=== PATIENT | female | born 2000 | race Two or more races ===

== ENCOUNTER 2018-07-06 14:19 | Inpatient (IN) | payer MEDICAID ==
[2018-07-06 15:15] LABS: ADD MAN DIFF? NO
[2018-07-06 15:19] LABS: WHITE BLOOD COUNT 7.4 10^3/ul (4.8-10.8)
[2018-07-06 15:19] LABS: BASOPHILS % 0.1 % (0.0-2.0); EOSINOPHILS # 0.1 10^3/ul (0.0-0.5); EOSINOPHILS % 0.8 % (0.0-7.0); HEMATOCRIT 34.2 % (37.0-47.0); HEMOGLOBIN 11.8 g/dl (12.0-16.0); LYMPHOCYTES % 26.9 % (18.0-55.0); MEAN CORPUSCULAR HEMOGLOBIN 31.1 pg (29.0-33.0); MEAN CORPUSCULAR HGB CONC 34.5 g/dl (32.0-37.0); MEAN PLATELET VOLUME 12.3 fl (7.4-10.4); MONOCYTE # 0.6 10^3/ul (0.3-0.9); MONOCYTES % 7.7 % (0.0-13.0); NEUTROPHIL # 4.8 10^3/ul (1.6-7.5); PLATELET COUNT 128 10^3/UL (140-415); RED CELL DISTRIBUTION WIDTH 12.5 % (11.5-14.5)
[2018-07-06 15:30] LABS: ADD UMIC NO; UR ASCORBIC ACID NEGATIVE (NEGATIVE); UR BILIRUBIN (Dip) NEGATIVE (NEGATIVE); UR BLOOD (Dip) NEGATIVE (NEGATIVE); UR CLARITY CLEAR (CLEAR); UR COLOR YELLOW (YELLOW); UR GLUCOSE (Dip) NEGATIVE (NEGATIVE); UR KETONES (Dip) NEGATIVE (NEGATIVE); UR LEUKOCYTE ESTERASE (Dip) NEGATIVE Leu/ul (NEGATIVE); UR NITRITE (Dip) NEGATIVE (NEGATIVE); UR SPECIFIC GRAVITY (Dip) 1.015 (1.003-1.030); UR TOTAL PROTEIN (Dip) NEGATIVE (NEGATIVE); UR UROBILINOGEN (Dip) NEGATIVE (NEGATIVE)
[2018-07-06 15:40] LABS: ALANINE AMINOTRANSFERASE 33 IU/L (13-69); ALKALINE PHOSPHATASE 163 IU/L (42-121); ANION GAP 11 (8-16); ASPARTATE AMINO TRANSFERASE 29 IU/L (15-46); BILIRUBIN,INDIRECT 0.2 mg/dl (0-1.1); BILIRUBIN,TOTAL 0.2 mg/dl (0.2-1.3); BLOOD UREA NITROGEN 12 mg/dl (7-20); CALCIUM 9.2 mg/dl (8.4-10.2); CARBON DIOXIDE 22 mmol/L (21-31); CHLORIDE 107 mmol/L (97-110); CREATININE 0.57 mg/dl (0.44-1.00); GLUCOSE 121 mg/dl (70-220); POTASSIUM 3.9 mmol/L (3.5-5.1); SODIUM 136 mmol/L (135-144); URIC ACID 4.8 mg/dl (3.1-7.9)
[2018-07-06 15:41] LABS: ALBUMIN 2.8 g/dl (3.3-4.9); ALBUMIN/GLOBULIN RATIO 0.87; INR 0.88; PARTIAL THROMBOPLASTIN TIME 27.9 Sec (23.0-35.0); PT RATIO 0.9
[2018-07-06] MEDS: BETAMET NA PHOS/AC(6 MG/ML) 5ML INJ IM (16:52)
[2018-07-06] MEDS: MAGNESIUM SULFATE 4 GM/100 ML 100 ML IV (16:56)
[2018-07-06] MEDS: MAGNESIUM SULFATE 20 GM/500 ML 500 ML IV (17:24)
[2018-07-06] MEDS: LACTATED RINGER'S 1,000 ML IV (18:25)
[2018-07-06 19:13] LABS: HEPATITIS B SURFACE ANTIGEN NEGATIVE (NEGATIVE)
[2018-07-06 20:01] LABS: HIV 1&2 ANTIBODY NEGATIVE (NEGATIVE)
[2018-07-06] MEDS: ACETAMINOPHEN 325 MG TAB PO (20:30)
[2018-07-07 01:03] LABS: MAGNESIUM 5.2 mg/dl (1.7-2.5)
[2018-07-07] MEDS: LACTATED RINGER'S 1,000 ML IV ×3 (01:47→19:00)
[2018-07-07] MEDS: MAGNESIUM SULFATE 20 GM/500 ML 500 ML IV ×3 (03:25→23:56)
[2018-07-07 07:34] LABS: MAGNESIUM 5.9 mg/dl (1.7-2.5)
[2018-07-07] MEDS: ACETAMINOPHEN 325 MG TAB PO (12:02)
[2018-07-07 12:53] LABS: MAGNESIUM 6.4 mg/dl (1.7-2.5)
[2018-07-07] MEDS: BETAMET NA PHOS/AC(6 MG/ML) 5ML INJ IM (15:41)
[2018-07-07 16:23] LABS: RAPID PLASMA REAGIN NONREACTIVE (NR)
[2018-07-07 17:09] LABS: COLLECTION PERIOD 24 hrs
[2018-07-07 19:33] LABS: COLLECTION PERIOD 24 hrs; CREATININE CLEARANCE 143.3 mls/min (84.0-162.0); CREATININE,URINE RANDOM 29.05 mg/dl (20-320); SCRET 0.57 mg/dl (0.44-1.00); VOLUME 4050 ml/24hrs
[2018-07-07 19:34] LABS: VOLUME 4050 mls
[2018-07-07 20:16] LABS: MAGNESIUM 6.4 mg/dl (1.7-2.5)
[2018-07-08 01:51] LABS: MAGNESIUM 6.3 mg/dl (1.7-2.5)
[2018-07-08] MEDS: LACTATED RINGER'S 1,000 ML IV ×2 (02:24→15:45)
[2018-07-08 08:55] LABS: MAGNESIUM 6.2 mg/dl (1.7-2.5)
[2018-07-08] MEDS: MAGNESIUM SULFATE 20 GM/500 ML 500 ML IV (09:56)
[2018-07-08 12:56] LABS: RUBELLA ANTIBODY - IGG 6.74 index
[2018-07-08 19:03] LABS: MAGNESIUM 5.7 mg/dl (1.7-2.5)
[2018-07-09] MEDS: LACTATED RINGER'S 1,000 ML IV ×2 (05:06→18:26)
[2018-07-09 10:02] LABS: RUBELLA ANTIBODY - IGM <20.00 AU/mL
[2018-07-09 14:17] LABS: ADD MAN DIFF? NO
[2018-07-09 14:18] LABS: BASOPHILS % 0.1 % (0.0-2.0); EOSINOPHILS # 0.1 10^3/ul (0.0-0.5); EOSINOPHILS % 0.7 % (0.0-7.0); HEMATOCRIT 33.7 % (37.0-47.0); HEMOGLOBIN 11.1 g/dl (12.0-16.0); LYMPHOCYTES # 1.9 10^3/ul (0.8-2.9); LYMPHOCYTES % 22.5 % (18.0-55.0); MEAN CORPUSCULAR HEMOGLOBIN 30.7 pg (29.0-33.0); MEAN CORPUSCULAR HGB CONC 32.9 g/dl (32.0-37.0); MEAN CORPUSCULAR VOLUME 93.1 fl (72.0-104.0); MEAN PLATELET VOLUME 12.1 fl (7.4-10.4); NEUTROPHIL # 5.3 10^3/ul (1.6-7.5); NEUTROPHILS % 63.4 % (30.0-74.0); NUCLEATED RED BLOOD CELLS% 0.2 /100WBC (0.0-0.0); PLATELET COUNT 136 10^3/UL (140-415); RED BLOOD COUNT 3.62 10^6/ul (4.20-5.40); RED CELL DISTRIBUTION WIDTH 12.8 % (11.5-14.5)
[2018-07-09 14:18] LABS: WHITE BLOOD COUNT 8.3 10^3/ul (4.8-10.8)
[2018-07-09 14:39] LABS: INR 0.82; PARTIAL THROMBOPLASTIN TIME 25.4 Sec (23.0-35.0); PROTIME 11.3 Sec (11.9-14.9); PT RATIO 0.9
[2018-07-09 14:41] LABS: ALANINE AMINOTRANSFERASE 41 IU/L (13-69); ALBUMIN 2.7 g/dl (3.3-4.9); ALBUMIN/GLOBULIN RATIO 0.87; ALKALINE PHOSPHATASE 158 IU/L (42-121); ANION GAP 5 (5-13); ASPARTATE AMINO TRANSFERASE 40 IU/L (15-46); BILIRUBIN,INDIRECT 0.2 mg/dl (0-1.1); BILIRUBIN,TOTAL 0.2 mg/dl (0.2-1.3); BLOOD UREA NITROGEN 11 mg/dl (7-20); CALCIUM 8.5 mg/dl (8.4-10.2); CARBON DIOXIDE 25 mmol/L (21-31); CHLORIDE 107 mmol/L (97-110); CREATININE 0.67 mg/dl (0.44-1.00); GLUCOSE 98 mg/dl (70-220); POTASSIUM 4.2 mmol/L (3.5-5.1); SODIUM 137 mmol/L (135-144); TOTAL PROTEIN 5.8 g/dl (6.1-8.1); URIC ACID 5.1 mg/dl (3.1-7.9)
[2018-07-09 15:13] LABS: ADD UMIC NO; UR ASCORBIC ACID 20 mg/dL (NEGATIVE); UR BACTERIA FEW /HPF (NONE SEEN); UR BILIRUBIN (Dip) NEGATIVE (NEGATIVE); UR BLOOD (Dip) NEGATIVE (NEGATIVE); UR CLARITY SLIGHTLY CLOUDY (CLEAR); UR COLOR YELLOW (YELLOW); UR GLUCOSE (Dip) NEGATIVE (NEGATIVE); UR KETONES (Dip) NEGATIVE (NEGATIVE); UR LEUKOCYTE ESTERASE (Dip) NEGATIVE Leu/ul (NEGATIVE); UR NITRITE (Dip) NEGATIVE (NEGATIVE); UR RBC 1 /HPF (0-5); UR SPECIFIC GRAVITY (Dip) 1.018 (1.003-1.030); UR TOTAL PROTEIN (Dip) NEGATIVE (NEGATIVE); UR UROBILINOGEN (Dip) NEGATIVE (NEGATIVE); UR WBC 0 /HPF (0-5)
[2018-07-09] MEDS ORDERED: MISOPROSTOL 200 MCG TAB PR (18:00)
[2018-07-09] MEDS ORDERED: CARBOPROST 250 MCG INJ IM (18:00)
[2018-07-09] MEDS ORDERED: METHYLERGONOVINE 0.2 MG INJ IM (18:00)
[2018-07-09] MEDS ORDERED: OXYTOCIN 30 UNITS/LR 500 ML IV (18:00)
[2018-07-09] MEDS: ACETAMINOPHEN 325 MG TAB PO (18:40)
[2018-07-09] MEDS ORDERED: LABETALOL HCL 20MG INJ (18:50)
[2018-07-09] MEDS: LABETALOL HCL 20MG INJ IV ×2 (18:57→20:09)
[2018-07-09] MEDS ORDERED: ACETAMINOPHEN 325 MG TAB PO (19:00)
[2018-07-09] MEDS: ASPIRIN 81 MG TAB PO (19:42)
[2018-07-09] MEDS: CEFAZOLIN 2 GM/50 ML (PMX) 50 ML IV (20:30)
[2018-07-09] MEDS ORDERED: morphine SULFATE/PF (10 MG/10 ML) INJ (20:33)
[2018-07-09] MEDS ORDERED: OXYTOCIN 10 UNIT INJ ×2 (20:34→21:08)
[2018-07-09] MEDS ORDERED: PHENYLephrine (100 MCG/ML) 5ML SYG (20:34)
[2018-07-09] MEDS ORDERED: ONDANSETRON 4 MG INJ (20:34)
[2018-07-09] MEDS ORDERED: BUPIVACAINE 0.75%/DEXT (SPINAL) 2 ML INJ (20:39)
[2018-07-09] MEDS ORDERED: FENTAnyl 50 MCG/ML VIAL ×3 (21:07→21:38)
[2018-07-09] MEDS ORDERED: hydrALAzine 20 MG INJ (21:27)
[2018-07-09] MEDS ORDERED: MIDAZOLAM 1 MG/ML 2 ML INJ (21:40)
[2018-07-09] MEDS ORDERED: NALOXONE (0.4 MG/ML) INJ IV (22:30)
[2018-07-09] MEDS ORDERED: DIPHENHYDRAMINE 50 MG INJ IV (22:30)
[2018-07-09] MEDS ORDERED: ONDANSETRON 4 MG INJ IV (22:30)
[2018-07-09] MEDS ORDERED: morphine 2 MG INJ IV (22:30)
[2018-07-09] MEDS: MAGNESIUM SULFATE 4 GM/100 ML 100 ML IVPB (22:36)
[2018-07-09] MEDS: KETOROLAC 30 MG INJ IV (22:51)
[2018-07-09] MEDS: MAGNESIUM SULFATE 20 GM/500 ML 500 ML IV (23:16)
[2018-07-10] MEDS: LACTATED RINGER'S 1,000 ML IV ×4 (00:09→10:00)
[2018-07-10] MEDS ORDERED: ONDANSETRON 4 MG INJ IV (00:30)
[2018-07-10] MEDS ORDERED: MISOPROSTOL 200 MCG TAB PR (00:30)
[2018-07-10] MEDS ORDERED: CARBOPROST 250 MCG INJ IM (00:30)
[2018-07-10] MEDS ORDERED: METHYLERGONOVINE 0.2 MG INJ IM (00:30)
[2018-07-10] MEDS ORDERED: OXYTOCIN 30 UNITS/LR 500 ML IV (00:30)
[2018-07-10] MEDS ORDERED: MAGNESIUM HYDROXIDE 30ML CUP PO (00:30)
[2018-07-10] MEDS ORDERED: ACETAMINOPHEN 325 MG TAB PO (00:30)
[2018-07-10] MEDS ORDERED: BISACODYL 10 MG SUPP PR (00:30)
[2018-07-10] MEDS: OXYTOCIN 30 UNITS/LR 500 ML IV (02:17)
[2018-07-10] MEDS: CEFAZOLIN 1 GM/50 ML (PMX) 50 ML IVPB ×3 (03:05→19:07)
[2018-07-10 07:59] LABS: ADD MAN DIFF? NO
[2018-07-10 08:04] LABS: BASOPHILS % 0.2 % (0.0-2.0); EOSINOPHILS % 0.2 % (0.0-7.0); HEMOGLOBIN 10.2 g/dl (12.0-16.0); LYMPHOCYTES # 1.7 10^3/ul (0.8-2.9); LYMPHOCYTES % 14.1 % (18.0-55.0); MEAN CORPUSCULAR HEMOGLOBIN 30.5 pg (29.0-33.0); MEAN CORPUSCULAR HGB CONC 32.9 g/dl (32.0-37.0); MEAN CORPUSCULAR VOLUME 92.8 fl (72.0-104.0); MEAN PLATELET VOLUME 12.2 fl (7.4-10.4); MONOCYTE # 0.8 10^3/ul (0.3-0.9); MONOCYTES % 6.1 % (0.0-13.0); NEUTROPHIL # 9.6 10^3/ul (1.6-7.5); NEUTROPHILS % 78.6 % (30.0-74.0); PLATELET COUNT 113 10^3/UL (140-415); RED BLOOD COUNT 3.34 10^6/ul (4.20-5.40); RED CELL DISTRIBUTION WIDTH 12.7 % (11.5-14.5)
[2018-07-10 08:04] LABS: WHITE BLOOD COUNT 12.2 10^3/ul (4.8-10.8)
[2018-07-10 08:25] LABS: ALANINE AMINOTRANSFERASE 43 IU/L (13-69); ALBUMIN 2.2 g/dl (3.3-4.9); ALBUMIN/GLOBULIN RATIO 0.84; ALKALINE PHOSPHATASE 140 IU/L (42-121); ANION GAP 5 (5-13); ASPARTATE AMINO TRANSFERASE 39 IU/L (15-46); BILIRUBIN,INDIRECT 0.2 mg/dl (0-1.1); BILIRUBIN,TOTAL 0.2 mg/dl (0.2-1.3); BLOOD UREA NITROGEN 12 mg/dl (7-20); CALCIUM 7.6 mg/dl (8.4-10.2); CARBON DIOXIDE 26 mmol/L (21-31); CHLORIDE 102 mmol/L (97-110); CREATININE 0.73 mg/dl (0.44-1.00); GLUCOSE 81 mg/dl (70-220); POTASSIUM 4.5 mmol/L (3.5-5.1); SODIUM 133 mmol/L (135-144); TOTAL PROTEIN 4.8 g/dl (6.1-8.1)
[2018-07-10] MEDS: MAGNESIUM SULFATE 20 GM/500 ML 500 ML IV (08:49)
[2018-07-10 10:56] LABS: MAGNESIUM 6.2 mg/dl (1.7-2.5)
[2018-07-10 14:54] LABS: MAGNESIUM 6.4 mg/dl (1.7-2.5)
[2018-07-10] MEDS: KETOROLAC 30 MG INJ IV (16:01)
[2018-07-10 19:56] LABS: MAGNESIUM 6.1 mg/dl (1.7-2.5)
[2018-07-10] MEDS ORDERED: OXYCODONE/ACETAMINOPHEN (5/325) TAB PO (20:38)
[2018-07-11] MEDS: OXYCODONE/ACETAMINOPHEN (5/325) TAB PO (03:20)
[2018-07-11] MEDS: IBUPROFEN 600 MG TAB PO ×3 (05:51→13:09)
[2018-07-11 07:19] LABS: ADD MAN DIFF? NO
[2018-07-11 07:24] LABS: BASOPHILS % 0.1 % (0.0-2.0); EOSINOPHILS # 0.1 10^3/ul (0.0-0.5); HEMATOCRIT 28.4 % (37.0-47.0); HEMOGLOBIN 9.5 g/dl (12.0-16.0); LYMPHOCYTES # 1.9 10^3/ul (0.8-2.9); MEAN CORPUSCULAR HEMOGLOBIN 31.1 pg (29.0-33.0); MEAN CORPUSCULAR HGB CONC 33.5 g/dl (32.0-37.0); MEAN CORPUSCULAR VOLUME 93.1 fl (72.0-104.0); MEAN PLATELET VOLUME 11.9 fl (7.4-10.4); MONOCYTE # 0.6 10^3/ul (0.3-0.9); MONOCYTES % 6.4 % (0.0-13.0); NEUTROPHIL # 7.3 10^3/ul (1.6-7.5); NEUTROPHILS % 72.9 % (30.0-74.0); PLATELET COUNT 132 10^3/UL (140-415); RED BLOOD COUNT 3.05 10^6/ul (4.20-5.40)
[2018-07-11] MEDS: SENNA/DOCUSATE NA (8.6MG/50MG) TAB PO (13:09)
[2018-07-11] MEDS ORDERED: LABETALOL 100 MG TAB PO (22:00)
[2018-07-11] MEDS: LABETALOL 100 MG TAB PO (22:38)
[2018-07-12] MEDS: IBUPROFEN 600 MG TAB PO ×3 (02:55→17:17)
[2018-07-12] MEDS: LABETALOL 100 MG TAB PO (09:32)
[2018-07-12] MEDS: LANOLIN 7 GM TUBE TOP (17:17)
[2018-07-12] MEDS: LABETALOL 200 MG TAB PO (22:05)
[2018-07-13] MEDS: LABETALOL 200 MG TAB PO (08:47)
[2018-07-13] MEDS: IBUPROFEN 600 MG TAB PO (12:22)
== END 2018-07-13 16:02 | disposition home or self-care (01) | DRG 787 ==
LOC: OBT 14:19 → PP1 07-10 01:34 → L-D 14:19 → OBT 15:15 → L-D 15:15
PROC: 10D00Z1 Extraction of Products of Conception, Low, Open Approach (ICD-10-PCS; principal; 2018-07-09)
DX: O14.14 Severe pre-eclampsia complicating childbirth (principal); O99.12 Other diseases of the blood and blood-forming organs and certain disorders involving the immune mechanism complicating childbirth; O13.4 Gestational [pregnancy-induced] hypertension without significant proteinuria, complicating childbirth; D69.6 Thrombocytopenia, unspecified; O34.219 Maternal care for unspecified type scar from previous cesarean delivery; O99.214 Obesity complicating childbirth; E66.9 Obesity, unspecified; M25.511 Pain in right shoulder; Z3A.33 33 weeks gestation of pregnancy; Z37.0 Single live birth
CPT/HCPCS: 76815; 76818; 80053; 81001; 81003; 82575; 83735; 84156; 84560; 85025; 85384; 85610; 85730; 86592; 86703; 86762; 86850; 86900; 86901; 86920; 87340; 88307; 90686; 99464